=== PATIENT | male | born 1990 | race Caucasian/White ===

== ENCOUNTER 2018-09-16 12:26 | Emergency (ER) | payer OTHER ==
[~2018-09-16] VITALS: Wt 100.0 kg
[2018-09-16 12:29] VITALS: BP 123/75; PULSE 85; RESP 20
[2018-09-16] MEDS ORDERED: SOD CHLORIDE 0.9% 100 ML ONE (13:49)
[2018-09-16] MEDS ORDERED: IOHEXOL 300MG/ML 150 ML BTL ONE (13:49)
[2018-09-16] MEDS ORDERED: HYDR-4011 PO (14:38)
[2018-09-16] MEDS ORDERED: DOCU-144 PO (14:38)
--- NOTE | 2018-09-16 15:18 | ERD ---
ER Documentation Chief Complaint Chief Complaint LEFT LOWER ABD PAIN SINCE LAST NIGHT AND GOT WORSE TODAY. NO N/V/D/ HPI 27-year-old male presenting with left lower abdominal pain since last night. Patient states that it got worse and is been constant. He has had no nausea vomiting diarrhea. His last bowel movement was earlier today. Patient takes Plavix for heart attack he had 3 years ago. Heart attack was due to stress and diet. NKDA. Social history smokes half a pack of cigarettes a day. Denies any traumatic injury to his abdomen. Patient states he has been doing heavy lifting recently. ROS All systems reviewed and are negative except as per history of present illness. Medications Home Meds Active Scripts Docusate Sodium* (Colace*) 100 Mg Capsule, 100 MG PO TID, #30 CAP Prov:MALCOM AGUIRRE PA-C 09/16/18 Hydrocodone/Acetaminophen ([place] 5-325 Tablet) 1 Each Tablet, 1 TAB PO Q6H PRN for PAIN, #7 TAB Prov:MALCOM AGUIRRE PA-C 09/16/18 Allergies Allergies: Coded Allergies: No Known Allergy (Unverified , 09/16/18) PMhx/Soc History of Surgery: Yes (HEART STENT) Hx Cardiac Disorders: Yes (VT) Hx Alcohol Use: Yes Hx Substance Use: No Hx Tobacco Use: Yes Smoking Status: Current every day smoker FmHx Family History: No diabetes, No coronary disease, No other Physical Exam Vitals Vital Signs Date Temp Pulse Resp B/P (MAP) Pulse Ox O2 O2 Flow FiO2 Time Delivery Rate 09/16/18 97.9 85 20 123/75 99 12:29 (91) Physical Exam GENERAL: The patient is well-appearing, well-nourished, in no acute distress HEENT: Atraumatic. Conjunctivae are pink. Pupils equal, round, and reactive to light. There is no scleral icterus. Tympanic membranes clear bilaterally. Oropharynx clear. NECK: C-spine is soft and supple. There is no meningismus. There is no cervical lymphadenopathy. CHEST: Clear to auscultation bilaterally. There are no rales, wheezes or rhonchi. HEART: Regular rate and rhythm. No murmurs, clicks, rubs or gallops. ABDOMEN: Normal active bowel sounds. Mild TTP to left lower quadrant. BACK: No midline or flank tenderness. Result Diagram: 09/16/18 1312 09/16/18 1312 Results 24 hrs Laboratory Tests Test 09/16/18 13:12 White Blood Count 10.2 10^3/ul Red Blood Count 5.50 10^6/ul Hemoglobin 15.9 g/dl Hematocrit 48.2 % Mean Corpuscular Volume 87.6 fl Mean Corpuscular Hemoglobin 28.9 pg Mean Corpuscular Hemoglobin Concent 33.0 g/dl Red Cell Distribution Width 12.9 % Platelet Count 203 10^3/UL Mean Platelet Volume 11.7 fl Immature Granulocytes % 0.200 % Neutrophils % 61.2 % Lymphocytes % 27.0 % Monocytes % 9.2 % Eosinophils % 1.7 % Basophils % 0.7 % Nucleated Red Blood Cells % 0.0 /100WBC Immature Granulocytes # 0.020 10^3/ul Neutrophils # 6.3 10^3/ul Lymphocytes # 2.8 10^3/ul Monocytes # 0.9 10^3/ul Eosinophils # 0.2 10^3/ul Basophils # 0.1 10^3/ul Nucleated Red Blood Cells # 0.0 10^3/ul Urine Color YELLOW Urine Clarity CLEAR Urine pH 6.0 Urine Specific [place] 1.012 Urine Ketones NEGATIVE mg/dL Urine Nitrite NEGATIVE mg/dL Urine Bilirubin NEGATIVE mg/dL Urine Urobilinogen NEGATIVE mg/dL Urine Leukocyte Esterase NEGATIVE Maryjane/ul Urine Hemoglobin NEGATIVE mg/dL Urine Glucose NEGATIVE mg/dL Urine Total Protein NEGATIVE mg/dl Sodium Level 144 mmol/L Potassium Level 4.2 mmol/L Chloride Level 105 mmol/L Carbon Dioxide Level 29 mmol/L Anion Gap 10 Blood Urea Nitrogen 12 mg/dl Creatinine 0.86 mg/dl Est Glomerular Filtrat Rate mL/min > 60 mL/min Glucose Level 76 mg/dl Calcium Level 9.6 mg/dl Total Bilirubin 0.4 mg/dl Direct Bilirubin 0.00 mg/dl Indirect Bilirubin 0.4 mg/dl Aspartate Amino Transf (AST/SGOT) 27 IU/L Alanine Aminotransferase (ALT/SGPT) 35 IU/L Alkaline Phosphatase 122 IU/L Total Protein 7.8 g/dl Albumin 4.6 g/dl Globulin 3.20 g/dl Albumin/Globulin Ratio 1.43 Lipase 41 U/L Current Medications Medications Dose Sig/Arnold Start Time Status Last (Trade) Ordered Route PRN Stop Time Admin Dose Reason Admin IV Flush 10 ml STK-MED 09/16/18 DC 09/16/18 (NS 10 ml) ONCE .ROUTE 13:49 09/16/18 13:56 13:50 Sodium 100 ml @ ud STK-MED 09/16/18 DC 09/16/18 Chloride ONCE .ROUTE 13:49 09/16/18 13:56 13:50 Iohexol 150 ml STK-MED 09/16/18 DC 09/16/18 (Omnipaque ONCE .ROUTE 13:49 09/16/18 13:56 300mg/ ml) 13:50 Procedures/MDM DIAGNOSTIC IMAGING REPORT Patient: YASMEEN SUE : 1990 Age: 27 Sex: M MR #: [id number] DOS: 09/16/18 1259 Ordering MD: JUDIE AGUIRRE PA-C Location: [facility] Room/Bed: PROCEDURE: CT Abdomen and Pelvis with contrast. CLINICAL INDICATION: Abdominal pain TECHNIQUE: CT scan of the abdomen and pelvis with contrast was performed on a multi-detector high-resolution CT scanner. The patient was scanned following the uncomplicated intravenous administration of 100 cc of Omnipaque 300. Coronal and sagittal reformatted images were obtained from the axial source images. Images were reviewed on a high-resolution PACS workstation. The total exam CTDI equals 23.3 mGy and the total exam DLP equals 1476 mGy-cm. DICOM images are available. One or more of the following dose reduction techniques were utilized: 1.) Automated exposure control 2.) Adjustment of the mA +/- kV according to patient's size 3.) Use of iterative reconstruction technique. COMPARISON: None. FINDINGS: Limited evaluation of the lung bases are clear. No pleural effusion. The heart is normal in size. A heterogeneous subcapsular lesion in the right hepatic lobe (series 3, image 55) measuring approximately 2.8 cm in its entirety, may reflect a cavernous hemangioma but is incompletely characterized on this exam. A few other smaller hypervascular lesions adjacent to the gallbladder fossa (image 54 and image 50) are also incompletely characterized on this exam but may also reflect hemangiomas. Focal fatty infiltration is present at the falciform ligament. Portal vein is patent. No biliary dilatation. The spleen, bilateral adrenal glands, gallbladder, and pancreas are normal- appearing. The bilateral kidneys are normal-appearing without hydronephrosis or nephrolithiasis. The small and large bowel are thin-walled and nondilated without evidence for obstruction. Normal appendix. No free air nor free fluid. No abdominal pelvic adenopathy. There is stranding about an inflamed epiploic appendage arising from the anterior aspect of the left distal descending colon (series 3, image 129) consis tent with acute epiploic appendagitis. The adjacent bowel wall is not thickened. No associated abscess. Urinary bladder is grossly normal. Abdominal aorta is normal in caliber without dissection or aneurysm. No suspicious osseous lesions. IMPRESSION: 1. Acute epiploic appendagitis adjacent to the distal descending colon in the left lower quadrant of the abdomen. 2. Incidentally noted are a few heterogeneous and hypervascular liver lesions measuring up to 2.8 cm which are incompletely characterized on the current examination but may reflect benign cavernous hemangiomas. Recommend further evaluation on a non emergent basis with MRI or CT (liver protocol). 3. Normal appendix. MDM: 27 yr old male complaining of abdominal pain. I have low suspicion for acute abdominal emergency. Patient's pain is likely associated with epiploic appendagitis. Patient does not require antibiotic treatment. Patient will be treated with pain medication and stool softeners to prevent from constipation. Patient is told symptoms change or worsen to return immediately to the ER. All questions answered at discharge Departure Diagnosis: Primary Impression: Abdominal pain Condition: Stable Patient Instructions: Abdominal Pain Referrals: [facility] YOU HAVE RECEIVED A MEDICAL SCREENING EXAM AND THE RESULTS INDICATE THAT YOU DO NOT HAVE A CONDITION THAT REQUIRES URGENT TREATMENT IN THE EMERGENCY DEPARTMENT. FURTHER EVALUATION AND TREATMENT OF YOUR CONDITION CAN WAIT UNTIL YOU ARE SEEN IN YOUR DOCTORS OFFICE WITHIN THE NEXT 1-2 DAYS. IT IS YOUR RESPONSIBILITY TO MAKE AN APPOINTMENT FOR FOLOW-UP CARE. IF YOU HAVE A PRIMARY DOCTOR --you should call your primary doctor and schedule an appointment IF YOU DO NOT HAVE A PRIMARY DOCTOR YOU CAN CALL OUR PHYSICIAN REFERRAL HOTLINE AT IF YOU CAN NOT AFFORD TO SEE A PHYSICIAN YOU CAN CHOSE FROM THE FOLLOWING [facility] [address] [facility]. [facility] [address] [facility] [address] [facility] [facility] [address] [facility] [address] [facility]. [facility] [address] Additional Instructions: FOLLOW UP WITH YOUR PRIMARY CARE PHYSICIAN TOMORROW.Return to this facility if you are not improving as expected. MALCOM AGUIRRE PA-C Sep 16, 2018 15:18
== END 2018-09-16 14:51 | disposition home or self-care (01) ==
LOC: FTE 12:26
DX: R10.32 Left lower quadrant pain (principal); I25.2 Old myocardial infarction; F17.210 Nicotine dependence, cigarettes, uncomplicated; Z98.61 Coronary angioplasty status
CPT/HCPCS: 36415; 74177; 80053; 81003; 83690; 85025; Q9967; Z7502; Z7610